=== PATIENT | female | born 1970 | race African-American/Black ===

== ENCOUNTER 2016-08-19 19:23 | Emergency (ER) | payer OTHER ==
[~2016-08-19] VITALS: Ht 188 cm; Wt 121.1 kg
[~2016-08-19 19:23] MED LIST: ALBU17AE26 IH; LEVA15HF5
[2016-08-19 19:38] VITALS: BP_SYST 159
[2016-08-19] MEDS ORDERED: DEXAMETHASONE SOD PHOSPHATE 10 MG/ML VIAL IM ONE (20:15)
[2016-08-19] MEDS ORDERED: KETOROLAC TROMETHAMINE 60 MG/2 ML VIAL IM ONE (20:15)
[2016-08-19 20:35] LABS: BILIRUBIN,URINE NEGATIVE (NEGATIVE); CLARITY/URINE HAZY (CLEAR); COLOR,URINE YELLOW (YELLOW); GLUCOSE,URINE NEGATIVE (NEGATIVE); KETONES,URINE NEGATIVE (NEGATIVE); LEUKOCYTE ESTERASE ,URINE 1+ (NEGATIVE); NITRITE, URINE NEGATIVE (NEGATIVE); PROTEIN URINE NEGATIVE (NEGATIVE); UROBILINOGEN,URINE 0.2 (0.2-1.0)
[2016-08-19 20:40] LABS: BLOOD, URINE TRACE (NEGATIVE)
[2016-08-19 20:53] LABS: BACTERIA,URINE MANY /HPF (None Seen); MUCUS,URINE None Seen /LPF (None Seen); RBC,URINE NONE SEEN /HPF (0-3); WBC,URINE 80-100 /HPF (0-3)
[2016-08-19] MEDS ORDERED: MORPHINE SULFATE 10 MG/ML VIAL IM ONE (21:00)
[2016-08-19] MEDS ORDERED: DIPHENHYDRAMINE INJ 50 MG/ML VIAL IM ONE (21:00)
[2016-08-19 21:24] VITALS: BP_SYST 136
== END 2016-08-19 21:24 | disposition home or self-care (01) ==
LOC: SED 19:23
DX: N39.0 Urinary tract infection, site not specified (principal); G89.29 Other chronic pain; M54.5 Low back pain; F17.200 Nicotine dependence, unspecified, uncomplicated; G43.909 Migraine, unspecified, not intractable, without status migrainosus; J45.909 Unspecified asthma, uncomplicated; I10 Essential (primary) hypertension; Z88.1 Allergy status to other antibiotic agents
CPT/HCPCS: 81000; 81025; 87086; 96372; 99284; J1100; J1200; J1885; J2270; 87186-TC

== ENCOUNTER 2017-07-06 06:16 | Emergency (ER) | payer SELFPAY ==
[~2017-07-06] VITALS: Ht 188 cm; Wt 120.2 kg
[2017-07-06 06:40] VITALS: BP_SYST 157
[2017-07-06] MEDS ORDERED: LOSA25TA3 PO (06:51)
[2017-07-06] MEDS ORDERED: HYDR12.55 PO (06:52)
[2017-07-06] MEDS ORDERED: HYDR25TA4 PO (06:52)
[2017-07-06] MEDS ORDERED: ALBU8.5H8 INH (06:53)
[2017-07-06] MEDS: MORPHINE 4 MG/ML INJ. SYRINGE IM ONE (07:36)
[2017-07-06] MEDS: KETOROLAC TROMETHAMINE 60 MG/2 ML VIAL IM ONE (07:36)
[2017-07-06 08:22] LABS: BILIRUBIN,URINE NEGATIVE (NEGATIVE); CLARITY/URINE HAZY (CLEAR); COLOR,URINE YELLOW (YELLOW); GLUCOSE,URINE NEGATIVE (NEGATIVE); KETONES,URINE NEGATIVE (NEGATIVE); LEUKOCYTE ESTERASE ,URINE NEGATIVE (NEGATIVE); NITRITE, URINE NEGATIVE (NEGATIVE); PROTEIN URINE NEGATIVE (NEGATIVE); UROBILINOGEN,URINE 0.2 (0.2-1.0)
[2017-07-06 08:25] LABS: BLOOD, URINE TRACE (NEGATIVE)
[2017-07-06 08:32] LABS: BACTERIA,URINE MANY /HPF (None Seen); RBC,URINE 0-3 /HPF (0-3); WBC,URINE 0-3 /HPF (0-3)
[2017-07-06 08:33] LABS: MUCUS,URINE None Seen /LPF (None Seen)
[2017-07-06 08:46] VITALS: BP_SYST 148
== END 2017-07-06 08:46 | disposition home or self-care (01) ==
LOC: SED 06:16
DX: M54.5 Low back pain (principal); G43.909 Migraine, unspecified, not intractable, without status migrainosus; J45.909 Unspecified asthma, uncomplicated; I10 Essential (primary) hypertension; F17.210 Nicotine dependence, cigarettes, uncomplicated; Z90.89 Acquired absence of other organs; Z90.710 Acquired absence of both cervix and uterus; Z88.1 Allergy status to other antibiotic agents
CPT/HCPCS: 81000; 81025; 87086; 96372; 99284; J1885; J2270; 99285

== ENCOUNTER 2018-08-21 14:33 | Emergency (ER) | payer OTHER ==
[~2018-08-21] VITALS: Ht 188 cm; Wt 127.0 kg
[~2018-08-21 14:33] MED LIST changes: -ALBU17AE26 IH; +ALBU8.5H8 INH; +HYDR12.55 PO; +HYDR25TA4 PO; +LOSA25TA3 PO
[2018-08-21 14:44] VITALS: BP_SYST 164
[2018-08-21] MEDS ORDERED: DEXAMETHASONE SOD PHOSPHATE 10 MG/ML VIAL IVP ONE (15:00)
[2018-08-21] MEDS ORDERED: MORPHINE 4 MG/ML INJ. SYRINGE IVP ONE (15:00)
[2018-08-21] MEDS ORDERED: ONDANSETRON HCL 4 MG/2 ML VIAL IVP ONE (15:00)
[2018-08-21 16:23] VITALS: BP_SYST 142
== END 2018-08-21 16:23 | disposition home or self-care (01) ==
LOC: SED 14:33
DX: M54.40 Lumbago with sciatica, unspecified side (principal); J45.909 Unspecified asthma, uncomplicated; I10 Essential (primary) hypertension; G43.909 Migraine, unspecified, not intractable, without status migrainosus; Z88.1 Allergy status to other antibiotic agents; Z79.899 Other long term (current) drug therapy
CPT/HCPCS: 72114; 96374; 96375; 99283; J1100; J2270; J2405

== ENCOUNTER 2022-09-01 08:04 | Emergency (ER) | payer OTHER, MEDICAID ==
[~2022-09-01] VITALS: Ht 188 cm; Wt 128.4 kg
[2022-09-01 08:05] VITALS: BP_SYST 143
[2022-09-01] MEDS ORDERED: IPRATROPIUM/ALBUTEROL SULFATE 3 ML AMPUL.NEB (DUONEB) INH ONE (08:30)
[2022-09-01] MEDS ORDERED: predniSONE 20 MG TABLET PO ONE (08:30)
[2022-09-01] MEDS ORDERED: PRED50TA PO (08:42)
[2022-09-01] MEDS ORDERED: ALBMDI INH (08:42)
[2022-09-01 09:35] VITALS: BP_SYST 133
== END 2022-09-01 09:35 | disposition home or self-care (01) ==
LOC: SED 08:04
DX: J45.901 Unspecified asthma with (acute) exacerbation (principal); R05.9 Cough, unspecified; R06.02 Shortness of breath; R09.81 Nasal congestion; I10 Essential (primary) hypertension; Z88.1 Allergy status to other antibiotic agents; Z79.899 Other long term (current) drug therapy
CPT/HCPCS: 99283; 94640; 94760; J7512